=== PATIENT | female | born 1995 | race Caucasian/White ===

== ENCOUNTER 2018-01-30 09:33 | Inpatient (IN) | payer OTHER ==
[~2018-01-30] VITALS: Ht 188 cm; Wt 86.6 kg
[2018-01-30 10:52] LABS: ABSOLUTE BASOPHIL COUNT 0.1 /CUMM (0.0-0.2); ABSOLUTE EOSINOPHIL COUNT 0.2 /CUMM (0.0-0.7); ABSOLUTE GRANULOCYTE CT 9.5 /CUMM (1.4-6.5); ABSOLUTE LYMPH COUNT 1.8 /CUMM (1.2-3.4); ABSOLUTE MONOCYTE COUNT 0.7 /CUMM (0.10-0.60); BASOPHIL % 0.4 % (0.0-2.0); GRANULOCYTE % 77.5 % (42.2-75.2); MEAN CORPUSCULAR HGB 26.7 PG (27.0-31.0); MEAN CORPUSCULAR HGB CONC 33.5 G/DL (33.0-37.0); MEAN CORPUSCULAR VOLUME 79.6 FL (81.0-99.0); MEAN PLATELET VOLUME 7.1 FL (7.4-10.4); PLATELET COUNT 341 /CUMM (130-400); RBC DISTRIBUTION WIDTH 16.4 % (11.5-14.5); RED BLOOD CELL CT 4.03 /CUMM (4.20-5.40); WHITE BLOOD CELL COUNT 12.3 /CUMM (4.8-10.8)
--- NOTE | 2018-01-30 18:23 | History & Physical Pre-Op ---
General Information and HPI History of Present Illness: 22yo lmp 04/18/17 edc 01/23/18 at 41 weeks for IOL. care complete and remarkable for anemia. Allergies/Medications Allergies: Coded Allergies: No Known Allergies (01/30/18) Past History Medical History Isolation History: Standard Surgical History Pertinent Surgical History: wrist cystectomy Past Family/Social History Psychosocial History Smoking Status: Never Smoked Review of Systems Review of Systems Constitutional: Reports: no symptoms. EENTM: Reports: no symptoms. Cardiovascular: Reports: no symptoms. Respiratory: Reports: no symptoms. GI: Reports: no symptoms. Genitourinary: Reports: no symptoms. Musculoskeletal: Reports: no symptoms. Skin: Reports: no symptoms. Neurological/Psychological: Reports: no symptoms. Hematologic/Endocrine: Reports: no symptoms. Immunologic/Allergic: Reports: no symptoms. All Other Systems: Reviewed and Negative Exam & Diagnostic Data Last 24 Hrs of Vital Signs/I&O Intake & Output 01/30 1600 01/30 0800 01/30 0000 Intake Total Output Total Balance Patient 191 lb Weight Physical Exam: Chest: CTA CV: nl S1S2 Abd: gravid, cephalic, EFW 8 lbs Cx: 2/50/-1 Ext: no c/c/e Assessment/Plan Assessment/Plan: postdates miso ripening pitocin induction As Ranked By This Provider Problem List: 1. Post-dates
--- NOTE | 2018-01-30 18:26 | PN- Obstetrical ---
Subjective Subjective: no c/o; feels UCs Review of Systems: negative Objective Last 24 Hrs of Vital Signs/I&O Intake & Output 01/30 1600 01/30 0800 01/30 0000 Intake Total Output Total Balance Patient 191 lb Weight Physical Exam: FH Cat 1 UC q 6-8 Cx: 2/80/-1 Obstetric Exam Dilation (cm): 2 Effacement (%): 80 Station: -1 Membranes: intact Fluid: unknown Multiple Gestation? No Contractions: 6-8 Assessment/Plan Assessment/Plan postdates s/p miso rest overnight pitocin in am Problem List: 1. Post-dates
[2018-01-30] MEDS ORDERED: PRENATAL TABLE1 EAC2 PO (18:55)
--- NOTE | 2018-01-31 07:53 | PN- Obstetrical ---
Subjective Subjective: no c/o Review of Systems: neg Objective Last 24 Hrs of Vital Signs/I&O Intake & Output 01/31 0800 01/31 0000 01/30 1600 Intake Total Output Total Balance Patient 191 lb Weight Physical Exam: cx: /-1 Obstetric Exam Dilation (cm): 3 Effacement (%): 80 Station: -1 Membranes: AROM Fluid: clear Multiple Gestation? No Contractions: occ Assessment/Plan Assessment/Plan postdates IOL AROM clear fluid Problem List: 1. Post-dates
--- NOTE | 2018-01-31 15:52 | Labor & Delivery Summary ---
Delivery Summary Vaginal Delivery: Vaginal: vertex Episiotomy/Lacerations: Episiotomy/Lacerations: epis and lac Type: RML and midline lac Placenta: Placenta: spontanteous, normal, 3 vessel Anesthesia: epidural Baby's Weight: 7/3 Apgars - 1 Min: 9 Apgars - 5 Min: 9
[2018-02-01 06:55] LABS: ABSOLUTE BASOPHIL COUNT 0 /CUMM (0.0-0.2); ABSOLUTE EOSINOPHIL COUNT 0.4 /CUMM (0.0-0.7); ABSOLUTE GRANULOCYTE CT 10.1 /CUMM (1.4-6.5); ABSOLUTE LYMPH COUNT 2.7 /CUMM (1.2-3.4); ABSOLUTE MONOCYTE COUNT 0.7 /CUMM (0.10-0.60); BASOPHIL % 0.2 % (0.0-2.0); EOSINOPHIL % 2.5 % (0-5); GRANULOCYTE % 72.7 % (42.2-75.2); HEMATOCRIT 27.5 % (37-47); MEAN CORPUSCULAR HGB 26.5 PG (27.0-31.0); MEAN CORPUSCULAR HGB CONC 32.7 G/DL (33.0-37.0); MEAN CORPUSCULAR VOLUME 80.9 FL (81.0-99.0); MEAN PLATELET VOLUME 7.4 FL (7.4-10.4); PLATELET COUNT 290 /CUMM (130-400); RBC DISTRIBUTION WIDTH 16.4 % (11.5-14.5); WHITE BLOOD CELL COUNT 13.9 /CUMM (4.8-10.8)
[2018-02-02] MEDS ORDERED: DOCUSATE SODIU100 M3 PO (07:49)
[2018-02-02] MEDS ORDERED: IBUPROFEN800 M1 PO (07:49)
== END 2018-02-02 11:30 | DRG 775 ==
LOC: GNO 09:33
PROVIDERS: Obstetrics & Gynecology
PROC: 0HQ9XZZ Repair Perineum Skin, External Approach (ICD-10-PCS; principal; 2018-01-31)
PROC: 10907ZC Drainage of Amniotic Fluid, Therapeutic from Products of Conception, Via Natural or Artificial Opening (ICD-10-PCS; principal; 2018-01-31)
PROC: 10E0XZZ Delivery of Products of Conception, External Approach (ICD-10-PCS; principal; 2018-01-31)
DX: O70.0 First degree perineal laceration during delivery (principal); Z3A.41 41 weeks gestation of pregnancy; Z37.0 Single live birth; O99.02 Anemia complicating childbirth; O48.0 Post-term pregnancy
CPT/HCPCS: GNOP; GNOS; 36415; 81001; 87086; J1885; J7120